=== PATIENT | male | born 1945 | race African-American/Black ===

== ENCOUNTER 2016-06-20 06:54 | Day surgery (SDC) | payer MEDICARE, BC ==
[~2016-06-20] VITALS: Ht 172.7 cm; Wt 110.7 kg
[~2016-06-20 06:54] MED LIST: ACTOS30 MG PO; ADLT ASA LOW81 MG PO; ALLOPURINOL100 MG OR; ALLOPURINOL300 MG PO; AMLODIPINE5 MG OR; APAP/HYDROCO1 TA1 OR; ATENOLOL25 MG PO; BENAZEPRIL20 MG OR; FLEXERIL OR; GLYBURID MCR6 MG OR; HUMULIN 70/30 SC; HUMULIN N1 ML SC; HYDROCHLOROT25 MG OR; MAXZIDE-2537.5 MG/TA PO; METFORMIN850 MG OR; NIFEDIPINE ER60 M1 PO; OMEPRAZOLE20 M2 PO; SIMVASTATIN40 MG OR; TRESIBA FL100 UNIT/M IJ
[2016-06-20 13:01] VITALS: BP 121/64
== END 2016-06-20 11:50 | disposition home or self-care (01) ==
LOC: ENDO 06:54 → ORM 08:00 → ENDO 11:50
PROVIDERS: ATTEND Surgery
PROC: 0DBP8ZX Excision of Rectum, Via Natural or Artificial Opening Endoscopic, Diagnostic (ICD-10-PCS; principal; 2016-06-20)
DX: Z12.11 Encounter for screening for malignant neoplasm of colon (principal); D12.8 Benign neoplasm of rectum; I12.9 Hypertensive chronic kidney disease with stage 1 through stage 4 chronic kidney disease, or unspecified chronic kidney disease; N18.3 Chronic kidney disease, stage 3 (moderate); E11.9 Type 2 diabetes mellitus without complications; I25.10 Atherosclerotic heart disease of native coronary artery without angina pectoris; K21.9 Gastro-esophageal reflux disease without esophagitis; E66.9 Obesity, unspecified; Z86.010 Personal history of colon polyps

== ENCOUNTER → 2018-05-09 | Outpatient (REF) | payer MEDICARE, BC | END | disposition home or self-care (01) | LOC: LAB 08:59 | PROVIDERS: ATTEND Radiology Radiation Oncology | DX: C61 Malignant neoplasm of prostate (principal) ==

== ENCOUNTER 2018-11-09 08:57 | Inpatient (IN) | payer MEDICARE, BC ==
[~2018-11-09] VITALS: Ht 172.7 cm; Wt 116.6 kg
[~2018-11-09 08:57] MED LIST changes: -SIMVASTATIN40 MG OR; +SIMVASTATIN40 MG PO; -TRESIBA FL100 UNIT/M IJ; +TRESIBA FL100 UNIT/M SC
[2018-11-09] MEDS ORDERED: AMMONIUM LAC12 % EX (09:39)
[2018-11-09] MEDS ORDERED: DULOXETINE HCL30 MG PO (09:40)
[2018-11-09] MEDS ORDERED: LEVOTHYROXIN75 MCG PO (09:41)
[2018-11-09] MEDS ORDERED: FUROSEMIDE20 MG PO (09:42)
[2018-11-09 09:43] LABS: HEMATOCRIT 30.9 % (39.0-50.0); HEMOGLOBIN 10.1 g/dl (14.0-18.0); IMMATURE GRANULOCYTES 0.4 % (0.0-5.0); MEAN CELL VOLUME 98.4 fL CALC (80.0-100.0); MEAN CORPUSCULAR HGB 32.2 pG CALC (26.0-32.0); MEAN CORPUSCULAR HGB CONC 32.7 g/L CALC (32.0-36.0); NEUT# 6.01 thou/uL (1.82-7.42); RED BLOOD COUNT 3.14 mill/uL (4.70-6.10); RED CELL DISTRI WIDTH 16.4 % (11.5-15.5)
[2018-11-09 09:58] LABS: CREATININE 2.6 mg/dL (0.7-1.3)
[2018-11-09 12:28] VITALS: BP 154/75
[2018-11-09 16:12] VITALS: BP 184/77
[2018-11-09 20:44] VITALS: BP 182/92
[2018-11-09 21:20] VITALS: BP 179/86
[2018-11-09 21:51] VITALS: BP 184/92
[2018-11-09 23:00] VITALS: BP 180/75
[2018-11-10 00:19] VITALS: BP 160/80
[2018-11-10 04:19] VITALS: BP 147/69
[2018-11-10 05:20] LABS: HEMOGLOBIN 8.9 g/dl (14.0-18.0); MEAN CELL VOLUME 98.5 fL CALC (80.0-100.0); MEAN CORPUSCULAR HGB 32.5 pG CALC (26.0-32.0); RED BLOOD COUNT 2.74 mill/uL (4.70-6.10); RED CELL DISTRI WIDTH 16.6 % (11.5-15.5)
[2018-11-10 05:41] LABS: CREATININE 2.5 mg/dL (0.7-1.3); POTASSIUM 4.1 mmol/l (3.5-5.1)
[2018-11-10 07:30] VITALS: BP 150/78
[2018-11-10 11:15] VITALS: BP 132/63
[2018-11-10 15:11] VITALS: BP 157/71
[2018-11-10 19:48] VITALS: BP 157/69
[2018-11-10 23:38] LABS: POTASSIUM 3.9 mmol/l (3.5-5.1)
[2018-11-11] VITALS (11 sets, daily range): BP systolic 150–177; BP diastolic 58–88
[2018-11-12] VITALS (20 sets, daily range): BP systolic 136–180; BP diastolic 62–92
[2018-11-12 05:25] LABS: HEMATOCRIT 25.8 % (39.0-50.0); HEMOGLOBIN 8.5 g/dl (14.0-18.0); IMMATURE GRANULOCYTES 0.3 % (0.0-5.0); MEAN CELL VOLUME 99.2 fL CALC (80.0-100.0); MEAN CORPUSCULAR HGB 32.7 pG CALC (26.0-32.0); MEAN CORPUSCULAR HGB CONC 32.9 g/L CALC (32.0-36.0); NEUT# 5.67 thou/uL (1.82-7.42); RED BLOOD COUNT 2.6 mill/uL (4.70-6.10)
[2018-11-12 05:33] LABS: ALBUMIN 3.6 g/dL (3.2-5.0); CREATININE 3.3 mg/dL (0.7-1.3); TOTAL PROTEIN 7.6 g/dL (6.3-8.2)
[2018-11-12 06:13] LABS: BILIRUBIN, TOTAL 0.6 mg/dL (0.0-1.4)
[2018-11-12 09:38] LABS: URINE BILIRUBIN - DIPSTICK NEGATIVE (NEGATIVE); URINE BLOOD DIPSTICK NEGATIVE (NEGATIVE); URINE COLOR YELLOW; URINE GLUCOSE - DIPSTICK NEGATIVE (NEGATIVE); URINE KETONE NEGATIVE (NEGATIVE); URINE LEUK ESTERASE NEGATIVE (Negative); URINE NITRITE - DIPSTICK NEGATIVE (Negative); URINE PH 5.5 (4.5-8.0); URINE PROTEIN - DIPSTICK 100 mg/dL (NEG-TRACE); URINE SPECIFIC GRAVITY >=1.030; URINE UROBILINOGEN - DIPSTICK 0.2 E.U./dL (0.2)
[2018-11-12 09:40] LABS: URINE CLARITY CLEAR; URINE RBC 0-2 RBC/hpf (0-5); URINE WBC 0-2 WBC/hpf (0-5)
[2018-11-13] VITALS (12 sets, daily range): BP systolic 158–206; BP diastolic 63–100
[2018-11-13 05:57] LABS: HEMATOCRIT 28.8 % (39.0-50.0); HEMOGLOBIN 9.3 g/dl (14.0-18.0); MEAN CELL VOLUME 99.3 fL CALC (80.0-100.0); MEAN CORPUSCULAR HGB 32.1 pG CALC (26.0-32.0); MEAN CORPUSCULAR HGB CONC 32.3 g/L CALC (32.0-36.0); RED BLOOD COUNT 2.9 mill/uL (4.70-6.10); RED CELL DISTRI WIDTH 16.8 % (11.5-15.5)
[2018-11-13 06:10] LABS: CREATININE 3.2 mg/dL (0.7-1.3); POTASSIUM 4.5 mmol/l (3.5-5.1)
[2018-11-14] VITALS (18 sets, daily range): BP systolic 135–220; BP diastolic 77–99
[2018-11-14 00:30] LABS: C. DIFFICILE TOXIN A&B NEGATIVE (NEGATIVE)
[2018-11-14 05:46] LABS: HEMATOCRIT 26.5 % (39.0-50.0); HEMOGLOBIN 8.7 g/dl (14.0-18.0); MEAN CELL VOLUME 98.1 fL CALC (80.0-100.0); MEAN CORPUSCULAR HGB 32.2 pG CALC (26.0-32.0); MEAN CORPUSCULAR HGB CONC 32.8 g/L CALC (32.0-36.0); RED BLOOD COUNT 2.7 mill/uL (4.70-6.10); RED CELL DISTRI WIDTH 16.5 % (11.5-15.5)
[2018-11-14 06:09] LABS: ALBUMIN 3.7 g/dL (3.2-5.0); CREATININE 2.9 mg/dL (0.7-1.3); POTASSIUM 4.7 mmol/l (3.5-5.1)
[2018-11-15] VITALS (18 sets, daily range): BP systolic 154–221; BP diastolic 62–94
[2018-11-15 05:42] LABS: HEMATOCRIT 26.1 % (39.0-50.0); HEMOGLOBIN 8.3 g/dl (14.0-18.0); MEAN CELL VOLUME 100.4 fL CALC (80.0-100.0); MEAN CORPUSCULAR HGB 31.9 pG CALC (26.0-32.0); MEAN CORPUSCULAR HGB CONC 31.8 g/L CALC (32.0-36.0); RED BLOOD COUNT 2.6 mill/uL (4.70-6.10); RED CELL DISTRI WIDTH 16.9 % (11.5-15.5)
[2018-11-15 06:00] LABS: ALBUMIN 3.5 g/dL (3.2-5.0); CREATININE 3.1 mg/dL (0.7-1.3); POTASSIUM 4.9 mmol/l (3.5-5.1)
[2018-11-16] VITALS (10 sets, daily range): BP systolic 143–175; BP diastolic 68–90
[2018-11-16 05:06] LABS: HEMATOCRIT 25.6 % (39.0-50.0); HEMOGLOBIN 8.4 g/dl (14.0-18.0); MEAN CELL VOLUME 98.1 fL CALC (80.0-100.0); MEAN CORPUSCULAR HGB 32.2 pG CALC (26.0-32.0); MEAN CORPUSCULAR HGB CONC 32.8 g/L CALC (32.0-36.0); RED BLOOD COUNT 2.61 mill/uL (4.70-6.10); RED CELL DISTRI WIDTH 16.6 % (11.5-15.5)
[2018-11-16 05:39] LABS: ALBUMIN 3.8 g/dL (3.2-5.0); CREATININE 3.1 mg/dL (0.7-1.3); POTASSIUM 4.4 mmol/l (3.5-5.1)
[2018-11-17] VITALS (7 sets, daily range): BP systolic 153–175; BP diastolic 80–90
[2018-11-17 04:22] LABS: HEMATOCRIT 25.3 % (39.0-50.0); HEMOGLOBIN 8.3 g/dl (14.0-18.0); MEAN CELL VOLUME 98.4 fL CALC (80.0-100.0); MEAN CORPUSCULAR HGB 32.3 pG CALC (26.0-32.0); MEAN CORPUSCULAR HGB CONC 32.8 g/L CALC (32.0-36.0); RED BLOOD COUNT 2.57 mill/uL (4.70-6.10); RED CELL DISTRI WIDTH 16.7 % (11.5-15.5)
[2018-11-17 04:33] LABS: ALBUMIN 3.7 g/dL (3.2-5.0); CREATININE 3.1 mg/dL (0.7-1.3); POTASSIUM 4.6 mmol/l (3.5-5.1)
[2018-11-18 04:28] VITALS: BP 141/73
[2018-11-18 07:22] VITALS: BP 166/81
[2018-11-18 10:07] VITALS: BP 176/99
[2018-11-18 11:22] VITALS: BP 158/60
[2018-11-18 11:39] LABS: HEMATOCRIT 27.3 % (39.0-50.0); HEMOGLOBIN 8.9 g/dl (14.0-18.0); IMMATURE GRANULOCYTES 2.1 % (0.0-5.0); MEAN CELL VOLUME 98.9 fL CALC (80.0-100.0); MEAN CORPUSCULAR HGB 32.2 pG CALC (26.0-32.0); MEAN CORPUSCULAR HGB CONC 32.6 g/L CALC (32.0-36.0); NEUT# 5.56 thou/uL (1.82-7.42); RED BLOOD COUNT 2.76 mill/uL (4.70-6.10); RED CELL DISTRI WIDTH 16.4 % (11.5-15.5)
[2018-11-18 11:57] LABS: CREATININE 2.5 mg/dL (0.7-1.3); POTASSIUM 4.5 mmol/l (3.5-5.1)
[2018-11-18 16:40] VITALS: BP 169/77
[2018-11-18] MEDS ORDERED: ALLOPURINOL100 MG PO (16:49)
[2018-11-18] MEDS ORDERED: DITROPAN5 MG/TA1 PO (16:50)
[2018-11-18] MEDS ORDERED: DOXYCYCL HYC100 MG PO (16:54)
== END 2018-11-18 18:50 | disposition home or self-care (01) | DRG 193 ==
LOC: ED 08:57 → ED-I 09:47 → ED 10:37 → MS2 10:38 → ICU 10:38 → MS2 11-16 13:45
PROVIDERS: Family Medicine; Internal Medicine Nephrology; Nurse Practitioner Family; ADMIT Internal Medicine; ATTEND Internal Medicine
PROC: 5A09357 Assistance with Respiratory Ventilation, Less than 24 Consecutive Hours, Continuous Positive Airway Pressure (ICD-10-PCS; principal; 2018-11-11)
PROC: 0T9B70Z Drainage of Bladder with Drainage Device, Via Natural or Artificial Opening (ICD-10-PCS; 2018-11-13)
DX: J18.9 Pneumonia, unspecified organism (principal); J96.21 Acute and chronic respiratory failure with hypoxia; N17.9 Acute kidney failure, unspecified; J44.1 Chronic obstructive pulmonary disease with (acute) exacerbation; J44.0 Chronic obstructive pulmonary disease with (acute) lower respiratory infection; I12.9 Hypertensive chronic kidney disease with stage 1 through stage 4 chronic kidney disease, or unspecified chronic kidney disease; E11.22 Type 2 diabetes mellitus with diabetic chronic kidney disease; N18.3 Chronic kidney disease, stage 3 (moderate); D63.1 Anemia in chronic kidney disease; E03.9 Hypothyroidism, unspecified; K21.9 Gastro-esophageal reflux disease without esophagitis; K59.00 Constipation, unspecified; F32.9 Major depressive disorder, single episode, unspecified; Z79.4 Long term (current) use of insulin; Z87.891 Personal history of nicotine dependence; Z85.46 Personal history of malignant neoplasm of prostate
CPT/HCPCS: J1756; S0164

== ENCOUNTER 2019-06-02 07:53 | Inpatient (IN) | payer MEDICARE, BC ==
[~2019-06-02] VITALS: Ht 172.7 cm; Wt 113.6 kg
[~2019-06-02 07:53] MED LIST changes: +ALLOPURINOL100 MG PO; +AMMONIUM LAC12 % EX; +CLONIDINE0.1 MG PO; +DITROPAN5 MG/TA1 PO; +DOXYCYCL HYC100 MG PO; +DULOXETINE HCL30 MG PO; +FUROSEMIDE20 MG PO; +LEVOTHYROXIN75 MCG PO; +NOVOLOG MIX SC; +RAYALDEE30 MCG PO; -SIMVASTATIN40 MG PO; -TRESIBA FL100 UNIT/M SC; +TRESIBA FL200 UNIT/M SC; +ZOCOR20 M1 PO; +ZYLOPRIM100 MG PO
--- NOTE | 2019-06-02 08:13 | NUR ---
PT TO ROOM WITH A STEADY GAIT.
[2019-06-02] MEDS ORDERED: LASIX20 MG PO (08:30)
[2019-06-02] MEDS ORDERED: RAYALDEE30 MCG PO (08:32)
[2019-06-02] MEDS ORDERED: TRAZODONE PO (08:38)
[2019-06-02] MEDS ORDERED: FERROUS SULF325 M2 PO (08:39)
[2019-06-02] MEDS ORDERED: VITAMIN B-12500 MCG PO (08:39)
[2019-06-02 08:53] LABS: HEMATOCRIT 33.8 % (39.0-50.0); HEMOGLOBIN 11.1 g/dl (14.0-18.0); IMMATURE GRANULOCYTES 0.6 % (0.0-5.0); MEAN CELL VOLUME 97.7 fL CALC (80.0-100.0); MEAN CORPUSCULAR HGB 32.1 pG CALC (26.0-32.0); MEAN CORPUSCULAR HGB CONC 32.8 g/L CALC (32.0-36.0); NEUT# 4.92 thou/uL (1.82-7.42); RED BLOOD COUNT 3.46 mill/uL (4.70-6.10); RED CELL DISTRI WIDTH 16.5 % (11.5-15.5)
[2019-06-02 09:06] LABS: ALBUMIN 4.3 g/dL (3.2-5.0); CREATININE 2.7 mg/dL (0.7-1.3); POTASSIUM 3.9 mmol/l (3.5-5.1); TOTAL PROTEIN 8.7 g/dL (6.3-8.2)
--- NOTE | 2019-06-02 09:07 | NUR ---
PT MEDICATED FOR FEVER. PT IN NO ACUTE DISTRESS, RESP EVEN AND [id number]. O2 AT 96% ON RA
[2019-06-02 09:08] LABS: BILIRUBIN, TOTAL 0.5 mg/dL (0.0-1.4)
[2019-06-02 09:10] LABS: ACT PARTIAL THROMBO TIME 33.1 SECONDS (20.0-32.5); PROTHROMBIN TIME 10.1 SECONDS (9.0-12.5)
--- NOTE | 2019-06-02 10:00 | NUR ---
RECIEVED REPORT FROM BULL VARELA
--- NOTE | 2019-06-02 11:00 | NUR ---
PT STATES HAVING SO8 WHEN HE ARRIVED, HE DENIES ANY SO8 AT THIS TIME OR CHEST PAIN. L LUNG SOUNDS CLEAR AND RIGHT LOWER LUNGS HAVE FAINT CRACKLES. SPO2 AT 95% WITH 2 L OF O2. PT DENIED DIZZINESS OR ANY OTHER PAIN OR SYMPTOMS. WILL CONTINUE TO [facility].
--- NOTE | 2019-06-02 12:00 | NUR ---
PT RESTING ON STRETCHER WITH CALL LIGHT AT REACH. PT AND NOTIFIED OF WAIT
--- NOTE | 2019-06-02 13:00 | NUR ---
PT AWARE OF PENDING ADMISSION AND ADVISED ON WAIT.
--- NOTE | 2019-06-02 14:00 | NUR ---
PT SITTING UP IN 8ED DENIES ANY NEEDS AT THIS TIME. ASKED FOR PO FLUIDS.
--- NOTE | 2019-06-02 15:15 | NUR ---
DR BATEMAN IN ROOM DISCUSSING PLAN OF CARE WITH PT.
--- NOTE | 2019-06-02 15:21 | NUR ---
GAVE REPORT TO CHRISTEN
--- NOTE | 2019-06-02 15:22 | NUR ---
PT TRANSPORTED TO MED SURG STA8LE AND IN NO DISTRESS VIA W/C 8Y MARIA R. CARE ASSUMED TO MARIA R WHO TRANSPORTED PT TO MED SURG Admission Note Report Given to: Transported by: X Wheelchair Stretcher Transported with: Nurse X Transporter X Patent IV X O2 X District Director Location: ICU X MS2
--- NOTE | 2019-06-02 15:40 | NUR ---
PT ARRIVED TO MS ACCOMPANIED BY JAMIE VARELA AND . A&O X3. O2 VIA NC @ 2L IN PLACE. PER PT HE WAS FEELING SOB EARLIER TODAY BUT IT HAS SUBSIDED. PER PT HE WOULD LIKE TO TAKE IT OFF AND KEEP IT AT BEDSIDE IF HE NEEDS IT, EXPLAINED TO THE PT THAT IF HIS O2 LEVEL DROPPED HE WAS GOING TO HAVE TO KEEP IT ON. PT VERBALIZED UNDERSTANDING. ORIENTED PT TO ROOM. ASSESSMENT COMPLETED. CALL LIGHT IN REACH. CONTINUE TO MONITOR.
[2019-06-02 16:00] VITALS: BP 149/82
--- NOTE | 2019-06-02 17:10 | NUR ---
PT SITTING IN BED EATING SUPPER WHEN HE HAD A COUGH EPISODE WHICH CAUSED SOB. O2 PLACED BACK ON AND EXPLAINED TO PT THAT HE WAS TO KEEP IT ON. PT VERBALIZED UNDESTANDING. CONTINUE TO MONITOR
[2019-06-02 18:34] VITALS: BP 158/84
--- NOTE | 2019-06-02 20:00 | NUR ---
PATIENT RESTING IN BED WITH HOB ELEVATED AND O2 VIA NASAL CANNULA IN PLACE. AWAKE, ALERT AND ORIENTEDX3. TELE MONITOR INPLACE. NO COMPLAINTS AT THIS TIME.IV SITE TO LEFT AC INTACT AND IS HEALTHY AT THIS TIME. INSTRUCTED ON NEED FOR SPUTUM SPEC WHEN ABLE TO PROVIDE.SAFETY PRECAUTIONS REINFORCED. CALL LIGHT IN REACH. WILL CONT TO MONITOR.
--- NOTE | 2019-06-02 21:00 | NUR ---
PATIENT RESTING IN BED WITH AT BEDSIDE. [id number] AND COVERED PER NOVALOG SLIDING SCALE COVERAGE PROTOCOL. NOVALOG 3UNITS SQ GIVEN. IOVF NS HUNG AND INFUSING VIA LEFT AC SITE. CALL LIGHT IN REACH. WILL CONT TO MONITOR.
--- NOTE | 2019-06-02 23:30 | NUR ---
PATIENT RESTING IN BED WITH O2 VIA NASAL CANNULA IN PLACE. APPEARS SLEEPING AT THIS TIME. TELE MONITOR IN PLACE. AT BEDSIDE. IVF PATENT AND INFUSING VIA LAC SITE AT 100CC/HR. CALL LIGHT IN REACH. WILL CONT TO MONITOR.
[2019-06-03] VITALS (7 sets, daily range): BP systolic 154–187; BP diastolic 74–87
--- NOTE | 2019-06-03 05:11 | NUR ---
RESTING IN BED AT THIS TIME WITH HOB ELEVATED AND EYES CLOSED. S/O RESTING AT BEDSIDE. O2 VIA NASAL CANNULA IN PLACE. IVF PATENT AND INFUSING VIA LAC SITE AT 100CC/HR. TELE MONITOR IN PLACE. CALL LIGHT IN REACH. WILL CONT TO MONITOR.
[2019-06-03 06:44] LABS: HEMATOCRIT 30.3 % (39.0-50.0); HEMOGLOBIN 9.7 g/dl (14.0-18.0); MEAN CELL VOLUME 98.1 fL CALC (80.0-100.0); MEAN CORPUSCULAR HGB 31.4 pG CALC (26.0-32.0); RED BLOOD COUNT 3.09 mill/uL (4.70-6.10); RED CELL DISTRI WIDTH 16.3 % (11.5-15.5)
[2019-06-03 06:56] LABS: CREATININE 2.7 mg/dL (0.7-1.3); POTASSIUM 4.4 mmol/l (3.5-5.1)
--- NOTE | 2019-06-03 07:14 | NUR ---
PT HAS RECEIVED BOTH PREVNAR AND PNEUMOVAX AFTER AGE 64, NEITHER INDICATED FOR PT AT THIS TIME
--- NOTE | 2019-06-03 09:00 | NUR ---
PT IS ALERT AND ORIENTED X 3. LUNGS ARE CLEAR, 2 LPM NC, THIS AFTER RESP TX. IS AT BEDSIDE. PT TO BR TODAY, BM TODAY. NO COMPLAINT OF SHORTNESS OF BREATH OR CHEST PAIN. PT WITH GHANAIAN ACCENT, DIFFICULT TO UNDERSTAND SOMETIMES.
--- NOTE | 2019-06-03 17:00 | NUR ---
PT OOB IN CHAIR THIS AFTERNOON. RESP TXs PROVIDED. PT DENIES SHORTNESS OF BREATH. PT SHOWERED TODAY.
--- NOTE | 2019-06-03 20:30 | NUR ---
PATIENT RESTING IN BED WITH AT BEDSIDE. AWAKE ALERT AND ORIENTEDX3. O2 VIA NASAL CANNULA INPLACE ORDERED. PATIENT SOB WITH EXHERSION WITH AUDIBLE WHEEZE, RT CALLED FOR NEB TREATMENT. TELE MONITOR IN PLACE. IVF PATENT AND INFUSING VIA LAC AT 50CC/HR. SITE IS HEALTHY AT THIS TIME. ACCU-CHECK 248-COVERED PER NOVALOG SLIDING SCALE COVERAGE PROTOCOL. HS SNACK PROVIDED. SAFETY PRECAUTIONS REINFORCED. CALL LIGHT IN REACH. WILL CONT TO JULIÁN.
--- NOTE | 2019-06-04 | NUR ---
PATIENT APPEARS SLEEPING WITH HOB ELEVATED AND O2 VIA NASAL CANNULA INPLACE AND EYES CLOSED. TELE MONITOR IN PLACE. IVF PATENT AND INFUSING VIA LEFT AC SITE AT 50CC/HR. AT BEDSIDE APPEARS SLEEPING. CALL LIGHT IN REACH. WILL CONT TO MONITOR.
[2019-06-04 03:25] VITALS: BP 159/87
--- NOTE | 2019-06-04 04:00 | NUR ---
PATIENT RESTING IN BED AT THIS TIME WITH O2 VIA NASAL CANNULA IN PLACE. EYES CLOSED AND RESP ARE EVEN AND UNLABORED. TELE MONITOR IN PLACE. AT BEDSIDE. IVF PATENT AND INFUSING ORDERED. CALL LIGHT IN REACH. WILL CONT TO MONITOR.
[2019-06-04 05:23] LABS: HEMATOCRIT 29.9 % (39.0-50.0); HEMOGLOBIN 9.6 g/dl (14.0-18.0); MEAN CELL VOLUME 98.7 fL CALC (80.0-100.0); MEAN CORPUSCULAR HGB 31.7 pG CALC (26.0-32.0); MEAN CORPUSCULAR HGB CONC 32.1 g/L CALC (32.0-36.0); RED BLOOD COUNT 3.03 mill/uL (4.70-6.10); RED CELL DISTRI WIDTH 16.5 % (11.5-15.5)
[2019-06-04 05:45] LABS: CREATININE 3.2 mg/dL (0.7-1.3)
[2019-06-04 06:02] LABS: POTASSIUM 5.3 mmol/l (3.5-5.1)
--- NOTE | 2019-06-04 07:00 | NUR ---
SHIFT CHANGE REPORT, PT AWAKE ALERT AND ORIENTED RESTING IN BED, O2 @ 2L VIA NC IN PLACE, TELE MONITOR IN PLACE, NO C/O DISCOMFORT AT THIS TIME, CALL BEE IN REACH, SPOUSE AT BEDSIDE.
[2019-06-04 07:30] VITALS: BP 152/85
[2019-06-04 10:52] VITALS: BP 159/85
[2019-06-04 11:05] LABS: URINE BILIRUBIN - DIPSTICK NEGATIVE (NEGATIVE); URINE BLOOD DIPSTICK MODERATE (NEGATIVE); URINE COLOR YELLOW; URINE GLUCOSE - DIPSTICK >=1000 mg/dL (NEGATIVE); URINE KETONE NEGATIVE (NEGATIVE); URINE LEUK ESTERASE NEGATIVE (NEGATIVE); URINE NITRITE - DIPSTICK NEGATIVE (Negative); URINE PH 5.5 (4.5-8.0); URINE PROTEIN - DIPSTICK 100 mg/dL (NEG-TRACE); URINE SPECIFIC GRAVITY 1.025; URINE UROBILINOGEN - DIPSTICK 0.2 E.U./dL (0.2)
[2019-06-04 11:06] LABS: URINE WBC 0-2 WBC/hpf (0-5)
[2019-06-04 15:20] VITALS: BP 160/77
--- NOTE | 2019-06-04 15:41 | NUR ---
RESTING IN BED AT THIS TIME, NO NEW COMPLAINS AND NO VISIBLE SIGN DISCOMFORT.
[2019-06-04 17:57] VITALS: BP 152/72
[2019-06-04 19:50] VITALS: BP 146/72
--- NOTE | 2019-06-04 21:00 | NUR ---
PATIENT RESTING IN BED WITH O2 VIA NASAL CANNULA INPLACE. AT BEDSIDE. [id number]. TYREE IS ON SOLU-MEDROL. PATRICIA GARZON CALLED AND NEW ORDERS RECEIVED, GIVEN 12UNITS OF NOVALOG TONIGHT, INCREASE LEVEMIR TO 40UNITS SQ IN AM, AND CHANGE NOVALOG SLIDING SCALE TO HIGH DOSE STARTING IN AM. WILL MEDICATED WHEN MEDS PROFILED ON EMAR. WILL CONT TO [id number]
[2019-06-05] VITALS (7 sets, daily range): BP systolic 150–170; BP diastolic 70–80
--- NOTE | 2019-06-05 00:15 | NUR ---
PATIENT RESTING IN BED WITH AT BEDSIDE. PATIENT WITH O2 VIA NASAL CANNULA IN PLACE. VS TAKEN AND RECORDED. VOIDING QS 350CC OF YELLOW URINEIN URINAL. TELE MONITOR IN PLACE. SAFETY PRECAUTIONS REINFORCED. CALL LIGHT IN REACH. WILL CONT TO MONITOR.
--- NOTE | 2019-06-05 04:00 | NUR ---
PATIENT RESTING IN BED AT THIS TIME WITH AT BEDSIDE. VS TAKEN AND RECORDED. VOIDED QS IN URINAL. TELE MONITOR IN PLACE. STILL WITH O2 VIA NASAL CANNULA IN PLACE. CALL LIGHT IN REACH. WILL CONT TO MONITOR.
[2019-06-05 04:43] LABS: HEMATOCRIT 29.6 % (39.0-50.0); HEMOGLOBIN 9.6 g/dl (14.0-18.0); MEAN CELL VOLUME 98.7 fL CALC (80.0-100.0); MEAN CORPUSCULAR HGB CONC 32.4 g/dL CAL (32.0-36.0); RED CELL DISTRI WIDTH 16.4 % (11.5-15.5)
[2019-06-05 04:58] LABS: ALBUMIN 3.5 g/dL (3.2-5.0); CREATININE 2.8 mg/dL (0.7-1.3); MAGNESIUM 2.2 mg/dL (1.6-2.3); POTASSIUM 4.8 mmol/l (3.5-5.1)
--- NOTE | 2019-06-05 12:00 | NUR ---
ASSISTED WITH SET-UP FOR SHOWER, ALL NEEDS MET.
--- NOTE | 2019-06-05 16:00 | NUR ---
RESTING IN BED, NO NEW COMPLAIN, SPOUSE AT BEDSIDE.
--- NOTE | 2019-06-05 20:35 | NUR ---
PT ASSESSMENT COMPLETED AND PT MEDICATIONS ADMINISTERED AT THIS TIME ORDERS PROVIDE. IS AT BEDSIDE COUGHING, STATED SHE HAS BEEN FEELING SICK, BUT HAD BEEN TO THE PHYSICIAN AND IS ON ANTIBIOTIC THERAPY. PT LUNG SOUNDS ARE CLEAR W/MILD WHEEZING UPPER. NO S/O DISTRESS. PT IS SITTING ON SIDE OF THE BED WATCHING TV WITH LIGHTS OUT. PT PROVIDED DIET SODA AT THIS TIME, DENIES SNACK.
[2019-06-06 01:34] VITALS: BP 169/80
--- NOTE | 2019-06-06 01:40 | NUR ---
PT MEDICATED FOR SUSTAINED SBP >160. ASSISTED WORKING RECLINER AND PROVIDED PILLOWS AND BLANKETS FOR COMFORT. PT DENIED ANY NEEDS AT THIS TIME. WILL CONTINUE TO MONITOR.
[2019-06-06 03:28] VITALS: BP 152/75
[2019-06-06 05:37] LABS: CREATININE 2.6 mg/dL (0.7-1.3); MAGNESIUM 2.2 mg/dL (1.6-2.3); POTASSIUM 4.3 mmol/l (3.5-5.1)
--- NOTE | 2019-06-06 06:33 | NUR ---
PT MEDICATED ORDERS PROVIDE. PT WAS SLEEPING WHEN I ENTERED THE ROOM.
[2019-06-06 07:38] VITALS: BP 148/71
--- NOTE | 2019-06-06 07:38 | NUR ---
PT SITTING IN BED. A&O X3. O2 VIA NC @2L IN PLACE. NO DISTRESS NOTED. WHEEZING HEARD UPON AUSCULTATION. NO OTHER NEEDS AT THIS TIME. PT VOICES THAT HE WOULD LIKE TO GO HOME TODAY, EXPLAINED TO PT THAT PHYSICIAN WOULD BE IN SOON TO COMPLETE ROUNDS. ASSESSMENT COMPLETED. DISCUSSED DOC. CALL LIGHT IN REACH. CONTINUE TO MONITOR.
[2019-06-06 10:40] VITALS: BP 177/88
[2019-06-06 10:42] VITALS: BP 177/88
--- NOTE | 2019-06-06 10:42 | NUR ---
CLONIDINE GIVEN, BP 177/88 HR 73. WILL REASSESS
[2019-06-06] MEDS ORDERED: LASIX20 MG PO (10:53)
[2019-06-06] MEDS ORDERED: DOXYCYCL HYC100 MG PO (10:54)
[2019-06-06] MEDS ORDERED: MEDDOSEPAK PO (10:54)
--- NOTE | 2019-06-06 11:56 | NUR ---
D/C INSTRUCTIONS GIVEN TO PT AND SPOUSE. PT VERBALIZED UNDERSTANDING. IV REMOVED. INTACT UPON REMOVAL.
--- NOTE | 2019-06-06 12:02 | NUR ---
Discharge instructions given. Patient verbalizes understanding of same. Discharged in stable condition via ambulatory to home with spouse. All belongings sent with pt.
== END 2019-06-06 12:02 | disposition home or self-care (01) | DRG 194 ==
LOC: ED 07:53 → ED-I 10:17 → ED 10:27 → MS2 10:28 → ED-I 10:28 → MS2 14:25
PROVIDERS: Internal Medicine Nephrology; Nurse Practitioner Family; ADMIT Internal Medicine; ATTEND Internal Medicine
DX: J18.9 Pneumonia, unspecified organism (principal); J96.11 Chronic respiratory failure with hypoxia; I13.0 Hypertensive heart and chronic kidney disease with heart failure and stage 1 through stage 4 chronic kidney disease, or unspecified chronic kidney disease; I50.9 Heart failure, unspecified; E11.22 Type 2 diabetes mellitus with diabetic chronic kidney disease; N18.3 Chronic kidney disease, stage 3 (moderate); D63.1 Anemia in chronic kidney disease; E03.9 Hypothyroidism, unspecified; E87.5 Hyperkalemia; M10.9 Gout, unspecified; Z87.01 Personal history of pneumonia (recurrent); Z87.891 Personal history of nicotine dependence; Z99.81 Dependence on supplemental oxygen; Z79.4 Long term (current) use of insulin
CPT/HCPCS: G0378

== ENCOUNTER 2021-01-12 08:43 | Observation (INO) | payer MEDICARE, BC ==
[~2021-01-12] VITALS: Ht 172.7 cm; Wt 101.0 kg
[2021-01-12] VITALS (7 sets, daily range): BP systolic 144–195; BP diastolic 64–90
[~2021-01-12 08:43] MED LIST changes: +FERROUS SULF325 M2 PO; +LASIX20 MG PO; +MEDDOSEPAK PO; +TRAZODONE PO; +VITAMIN B-12500 MCG PO
--- NOTE | 2021-01-12 08:45 | NUR ---
PT IMMEDIATELY TO ROOM # 13 VIA W/C FOR BEDSIDE TRIAGE
--- NOTE | 2021-01-12 08:49 | NUR ---
PATIENT WITH 2+ EDEMA TO LOWER LEGS
[2021-01-12 09:25] LABS: HEMATOCRIT 30.4 % (39.0-50.0); HEMOGLOBIN 9.7 g/dl (14.0-18.0); IMMATURE GRANULOCYTES 0.1 % (0.0-5.0); MEAN CELL VOLUME 104.1 fL CALC (80.0-100.0); MEAN CORPUSCULAR HGB 33.2 pG CALC (26.0-32.0); MEAN CORPUSCULAR HGB CONC 31.9 g/dL CAL (32.0-36.0); NEUT# 5.67 thou/uL (1.82-7.42); RED BLOOD COUNT 2.92 mill/uL (4.70-6.10); RED CELL DISTRI WIDTH 16.9 % (11.5-15.5)
[2021-01-12 09:48] LABS: ALBUMIN 4.1 g/dL (3.2-5.0); BILIRUBIN, TOTAL 0.5 mg/dL (0.0-1.4); CREATININE 3.8 mg/dL (0.7-1.3); POTASSIUM 4.1 mmol/l (3.5-5.1); TOTAL PROTEIN 8.3 g/dL (6.3-8.2)
--- NOTE | 2021-01-12 10:16 | NUR ---
PATIENT REEDUCATED TO NEED FOR COLLECTION OF URINE
[2021-01-12 10:28] LABS: URINE BILIRUBIN - DIPSTICK NEGATIVE (NEGATIVE); URINE BLOOD DIPSTICK MODERATE (NEGATIVE); URINE COLOR YELLOW; URINE GLUCOSE - DIPSTICK NEGATIVE (NEGATIVE); URINE KETONE NEGATIVE (NEGATIVE); URINE LEUK ESTERASE NEGATIVE (NEGATIVE); URINE PH 6.5 (4.5-8.0); URINE PROTEIN - DIPSTICK >=300 mg/dL (NEG-TRACE); URINE UROBILINOGEN - DIPSTICK 0.2 E.U./dL (0.2)
[2021-01-12 10:29] LABS: URINE NITRITE - DIPSTICK NEGATIVE (Negative)
[2021-01-12 10:36] LABS: URINE WBC 0-2 WBC/hpf (0-5)
--- NOTE | 2021-01-12 11:37 | NUR ---
PER PHYSICIAN GIVE LASIX AT THIS TIME.
--- NOTE | 2021-01-12 12:32 | NUR ---
REMAINS BEDSIDE WITH PATIENT
--- NOTE | 2021-01-12 14:22 | NUR ---
REPORT RECEIVED FROM AVERY PENA
--- NOTE | 2021-01-12 14:29 | NUR ---
REPORT GIVEN TO MED/SURG NURSE
[2021-01-12] MEDS ORDERED: LASIX 40 MG TAB40 MG PO (14:31)
--- NOTE | 2021-01-12 14:45 | NUR ---
PT ARRIVED TO MED/SURG ROOM 262 IN STABLE CONDITION VIA WC ACCOMPANIED DOREEN,AVERY AND SPOUSE;PT ASSISTED TO BEDSIDE WITH X1 PERSON ASSIST;VS AND WT OBTAINED BY OUMOU GHOTRA;PT BLOOD PRESURE ELEVATED AT 195/90 HR 70, ALL SCHEDULED MEDICATIONS TO BE GIVEN; PT A&O X3, ORIENTED TO ROOM AND CALL LIGHT SYSTEM;PT REPORTS SOB X1 WEEK PRIOR TO ARRIVAL;PT DENIES ANY CURRENT PAIN OR DISCOMFORTS,PAIN SCALE AND REPORTING EDUCATED;RESPIRATIONS EVEN AND UNLABORED ON O2 @ 3L VIA NC, PT HOME OXYGEN DEPENDENT ON 3L;DIMINISHED LUNG SOUNDS WITH NON-PRODUCTIVE COUGH;ABDOMEN DISTENDED/SOFT ON PALPATION AND ACTIVE IN ALL 4 QUADRANTS,LAST BM 01/11/21;WEAK PEDAL PULSES WITH +2 EDEMA TO BLE,ENCOURAGED ELEVATION OF BLE;SKIN INTACT;#20G TO RAC FLUSHED AND PATENT,SITE APPEARS HEALTHY;FALL AND ALLERGY BAND APPLIED TO LEFT ARM;PT DENIES ANY ADDITIONAL NEEDS AND IS ENCOURAGED TO CALL FOR ASSISTANCE IF NEEDED;FALL PRECAUTIONS IN PLACE WITH BED IN THE LOWEST POSITION AND CALL LIGHT IN REACH;WILL CONTINUE TO MONITOR
--- NOTE | 2021-01-12 16:25 | NUR ---
#16F COPELAND INSERTED AT THIS TIME,PT TOLERATED WELL.STAT LOCK APPLIED TO RIGHT THIGH.
--- NOTE | 2021-01-12 17:50 | NUR ---
PT RESTING IN SEMI FOWLERS POSITION;RESPIRATIONS EVEN AND UNLABORED ON RA;PT DENIES ANY CURRENT PAIN OR NEEDS;TELE MONITORING IN PLACE;IV SITE PATENT;COPELAND CATHETER PATENT DRAINING TO GRAVITY WITH EASE;ENCOURAGED TO CALL FOR ASSISTANCE IF NEEDED;CALL LIGHT IN REACH;WILL CONTINUE TO MONITOR
--- NOTE | 2021-01-12 19:54 | NUR ---
PATIENT RESTING IN BED AT THIS TIME-AWAKE ALERT AND ORIENTEDX3-NO COMPLAINTS AT THIS TIME. O2 VIA NASAL CANNULA IN PLACE AT 3LPM-O2 SAT WAS 91 AT THIS TIME. BP RECHECKED AND WAS 141/64. TELE MONITOR IN PLACE WITH LAST READING SR-70'S. COPELAND CATH PATENT AND DRAINING YELLOW URINE. IV SITE IS PATENT AND HEALTHY AT THIS TIME. BLE WITH SWELLING AND ENCOURAGED TO KEEP THEM ELEVATED. SAFETY PRECAUTIONS REINFORCED. CALL LIGHT IN REACH. WILL CONT TO MONITOR.
--- NOTE | 2021-01-12 20:45 | NUR ---
ACCU-CHECK WAS 175-PATIENT COVERED WITH HUMALOG 1UNIT SQ PER SLIDING SCALE COVERAGE PROTOCOL. PROVIDED WITH HS SNACK. O2 REMAINS IN PLACE AT 3LPM. COPELAND PATENT AND DRAINING CLEAR YELLOW URINE. SALINE LOCK TO RAC INTACT. BLE WITH SWELLING-ELEVATED ON PILLOWS. SAFETY PRECAUTIONS REINFORCED. CALL LIGHT IN REACH. WILL CONT TO MONITOR.
[2021-01-13] VITALS (10 sets, daily range): BP systolic 150–193; BP diastolic 71–97
--- NOTE | 2021-01-13 00:40 | NUR ---
PATIENT RESTING IN BED AT THIS TIME WITH O2 VIA NASAL CANNULA IN PLACE AT 3LPM. O2 SAT IS 93%. BP IS ELEVATED AT 191/91. APRESOLINE 10MG IVP GIVEN VIA RAC SITE ORDERED FOR HTN. TELE MONITOR IN PLACE-LAST READING WAS SR-70 1DEGREEE AVB. COPELAND PATENT AND DRAINING YELLOW URINE. CALL LIGHT IN REACH. WILL CONT TO MONITOR.
--- NOTE | 2021-01-13 03:05 | NUR ---
PATIENT RESTING IN BED AT THIS TIME POSITIONED ON RIGHT SIDE WITH EYES CLOSED. RESPS ARE EVEN AND UNLABORED WITH O2 VIA NASAL CANNULA IN PLACE AT 3LPM. TELE MONITOR IN PLACE. COPELAND PATENT AND DRAINING YELLOW URINE. CALL LIGHT IN REACH. WILL CONT TO MONITOR.
--- NOTE | 2021-01-13 04:32 | NUR ---
PATIENT RESTING IN BED AT THIS TIME WITH O2 VIA NASAL CANNULA IN PLACE AT 3LPM. O2 SAT IS 94%. COPELAND PATENT AND DRAINING YELLOW URINE. TELE MONITOR IN PLACE WITH LAST READING SR-77 WITH 1ST DEGREE AVB. CALL LIGHT IN REACH. WILL CONT TO MONITOR.
[2021-01-13 05:08] LABS: HEMATOCRIT 30.9 % (39.0-50.0); HEMOGLOBIN 9.5 g/dl (14.0-18.0); MEAN CELL VOLUME 105.8 fL CALC (80.0-100.0); MEAN CORPUSCULAR HGB 32.5 pG CALC (26.0-32.0); MEAN CORPUSCULAR HGB CONC 30.7 g/dL CAL (32.0-36.0); RED BLOOD COUNT 2.92 mill/uL (4.70-6.10); RED CELL DISTRI WIDTH 17.2 % (11.5-15.5)
[2021-01-13 05:26] LABS: ALBUMIN 3.4 g/dL (3.2-5.0); CREATININE 3.3 mg/dL (0.7-1.3); MAGNESIUM 2.1 mg/dL (1.6-2.3); POTASSIUM 4.2 mmol/l (3.5-5.1)
--- NOTE | 2021-01-13 06:08 | NUR ---
PATIENT RESTING IN BED WITH O2 VIA NASAL CANNULA IN PLACE AT 3LPM. BP IS STILL ELEVATED-181/84, PULSE-75. PATIENT MEDICATED WITH APRESOLINE 10MG IVP AND LASIX 40MG IVP ORDERED FOR HTN. COPELAND PATENT AND DRAINING YELLOW URINE. TELE MONITOR IN PLACE3. PATIENT WITH NO COMPLAINTS OR CONCERNS AT THIS TIME. CALL LIGHT IN REACH. WILL CONT TO MONITOR.
--- NOTE | 2021-01-13 07:00 | NUR ---
RECIEVED REPORT FROM AVERY CLAY
--- NOTE | 2021-01-13 07:46 | NUR ---
PT RESTING IN SEMI FOWLERS POSITION. PT IS A/O X3. ASSESSMENT AND VITALS COMPLETED. BP 177/75, HR 77,O2 93% ON 3L NC, PT HOME O2 DEPENDENT. RESPIRATIONS ARE EVEN AND UNLABORED WITH EXCERTIONAL SOB NOTED. LUNG SOUNDS ARE DIMINISHED. HEART RHYTHM NORMAL WITH TELE IN PLACE. BOWEL SOUNDS ARE ACTIVE. #20G RAC FLUSHED, SITE APPEARS HEALTHY AND PATENT. COPELAND IN PLACE,1150 ML OF CLEAR YELLOW URINE EMPTIED. SKIN INTACT. 2+ EDEMA NOTED TO BLE. PT DENIES OF ANY PAINS OR DISCOMFORTS AT THIS TIME. ALL SAFETY PRECAUTIONS ARE IN PLACE WITH CALL LIGHT IN REACH. WILL CONTINUE TO MONITOR .
--- NOTE | 2021-01-13 10:00 | NUR ---
DR BOBO AND KEITH,ANPAGE AT BEDSIDE
--- NOTE | 2021-01-13 11:20 | NUR ---
PHYSICAL THERAPY AT BEDSIDE
--- NOTE | 2021-01-13 11:28 | NUR ---
DR ENNIS AT BEDSIDE
--- NOTE | 2021-01-13 11:29 | NUR ---
PT SITTING UP IN RECYLINER WATCHING TV. RESPIRATIONS ARE EVEN AND UNLABORED WITH NO DISTRESS NOTED. #20G RAC REMAINS IN PLACE. COPELAND CATH IN PLACE, 500 CLEAR URINE NOTED. TELE MONITORING IN PLACE. PT DENIES OF ANY PAINS OR DISCOMFORTS AT THIS TIME. ALL SAFETY PRECAUTIONS ARE IN PLACE WITH CALL LIGHT IN REACH. WILL CONTINUE TO MONITOR
--- NOTE | 2021-01-13 11:57 | NUR ---
REPORTED BP OF 170/79, HR 83. CARLYN PARKERRP INFORMED OF ELEVATED BP. NEW ORDERS TO BE OBTAINED.
--- NOTE | 2021-01-13 14:18 | NUR ---
Patient underwent screening today for PT department. Patient states that he ambulates with no use of assistive device, has 3 steps going in to the house from the veranda with hand rails on both sides. Patient uses 3 liters of oxygen utilize at night before going to bed. B LE AROM are WFL and muscle strength at 3+/5. Patient carries out bed mobility and transfer ADLs independently and carries out prolonged standing activity with fair + dynamic balance. Patient presently not a good candidate for PT intervention.
--- NOTE | 2021-01-13 14:53 | NUR ---
SCHEDULED MEDICATIONS ADMINISTERD. PT REQUESTING FOR MOM AND PRUNE JUICE.
--- NOTE | 2021-01-13 15:24 | NUR ---
JOSHUA OAKLEY CALLED FOR UPDATE. PASSCODE PROVIDED.
--- NOTE | 2021-01-13 15:57 | NUR ---
PT RESTING IN SEMI FOWLERS POSITION. REPSIRATIONS ARE EVEN AND UNLABORED ON 3L NC.TELE MONITORING IN PLACE. #20G RAC REMAINS IN PLACE. FLEY CATH IN PLACE, 900 OF CLEAR YELLOW URINE NOTED, FLOWING WITH GRAVITY. PT DENIES OF ANY PAINS OR DISCOMFORTS AT THIS TIME. ALL SAFETY PRECAUTIONS ARE IN PLACE WITH CALL LIGHT IN REACH. WILL CONTINUE TO MONITOR
--- NOTE | 2021-01-13 16:08 | NUR ---
REPORTED BP OF 193/97, HR 87. APRESOLINE ADMINISTERED BY AVERY IBARRA.
--- NOTE | 2021-01-13 19:35 | NUR ---
PT IN BED, DENIES ANY NEEDS AT THIS TIME. LIGHTS AND TV ARE ON.
--- NOTE | 2021-01-13 20:54 | NUR ---
PT ASSESSMENT COMPLETED AND PT MEDICATED ORDERS PROVIDE. TEMP 100.4 AND PT MEDICATED WITH TYLENOL. PT ANSWERS APPROPRIATELY. PT DENIES ANY NEEDS AT THIS TIME, SNACK OFFERED, DENIED AND STATES HE DOES NOT HAVE MUCH APPETITE, INSULIN HELD AT THIS TIME, ACCU-CHECK 160. PT DENIES ANY OTHER NEEDS, BUT WAS ENCOURAGED TO CALL NEEDS ARISE, VERBALIZED UNDERSTANDING WHEN REORIENTED TO CALL LIGHT.
--- NOTE | 2021-01-13 23:25 | NUR ---
PULPING MACHINE OPERATOR IN WITH THE PT OBTAINING V/S. DENIES ANY NEEDS AT THIS TIME. NO S/O DISTRESS NOTED.
[2021-01-14] VITALS (8 sets, daily range): BP systolic 153–214; BP diastolic 74–88
--- NOTE | 2021-01-14 02:10 | NUR ---
PT APPEARS TO BE SLEEPING, NO S/O DISTRESS NOTED. CALL LIGHT AT SIDE. RESP ARE EVEN AND NON-LABORED.
[2021-01-14 06:01] LABS: CREATININE 3.3 mg/dL (0.7-1.3); MAGNESIUM 2.2 mg/dL (1.6-2.3); POTASSIUM 3.8 mmol/l (3.5-5.1)
[2021-01-14 06:05] LABS: ALBUMIN 3.9 g/dL (3.2-5.0); CREATININE 3.3 mg/dL (0.7-1.3)
[2021-01-14 06:07] LABS: HEMATOCRIT 34.4 % (39.0-50.0); MEAN CELL VOLUME 101.8 fL CALC (80.0-100.0); MEAN CORPUSCULAR HGB 32.5 pG CALC (26.0-32.0); RED BLOOD COUNT 3.38 mill/uL (4.70-6.10); RED CELL DISTRI WIDTH 16.9 % (11.5-15.5)
--- NOTE | 2021-01-14 07:00 | NUR ---
RECIEVED REPORT FROM AVERY PLEITEZ
--- NOTE | 2021-01-14 07:49 | NUR ---
PT SITTING UP IN CHAIR. PT IS A/O X3. ASSESSMENT AND VITALS COMPLETED. BP 167/79, HR 89, O2 94% ON 3L NC THAT PT IS DEPENDENT ON AT HOME. RESPIRATIONS ARE EVEN AND UNLABORED WITH NO DISTRESS NOTED. LUNG SOUNDS ARE CLEAR. HEART RHYTHM NORMAL WITH TELE IN PLACE, SR WITH 1 AVB AND PVCS. PULSES STRONG. 1+ EDEMA NOTED TO BLE. SKIN INTACT. #20G RFA FLUSHED, SITE APPEARS HEALTHY AND PATENT. COPELAND CATH IN PLACE, CLEAR YELLOW URINE NOTED. PT REPORTS COPELAND LEAKING, NO DRAINAGE NOTED. PT DENIES OF ANY PAINS OR DISCOMFORTS AT THIS TIME. ALL SAFETY PRECAUTIONS ARE IN PLACE WITH CALL LIGHT IN REACH. WILL CONTINUE TO MONITOR
--- NOTE | 2021-01-14 10:16 | NUR ---
DR BOBO AT BEDSIDE
--- NOTE | 2021-01-14 11:40 | NUR ---
DR ENNIS AT BEDSIDE
[2021-01-14 11:45] LABS: URINE BILIRUBIN - DIPSTICK NEGATIVE (NEGATIVE); URINE BLOOD DIPSTICK MODERATE (NEGATIVE); URINE COLOR YELLOW; URINE GLUCOSE - DIPSTICK 250 mg/dL (NEGATIVE); URINE KETONE NEGATIVE (NEGATIVE); URINE LEUK ESTERASE TRACE (NEGATIVE); URINE NITRITE - DIPSTICK NEGATIVE (Negative); URINE PH 7.5 (4.5-8.0); URINE PROTEIN - DIPSTICK 100 mg/dL (NEG-TRACE); URINE UROBILINOGEN - DIPSTICK 0.2 E.U./dL (0.2)
--- NOTE | 2021-01-14 11:46 | NUR ---
RADIOLOGY AT BEDSIDE
[2021-01-14 11:54] LABS: URINE SQUAMOUS EPITHELIAL CELL FEW EPI/hpf (0-FEW)
--- NOTE | 2021-01-14 12:32 | NUR ---
LAB AT BEDSIDE
--- NOTE | 2021-01-14 12:37 | NUR ---
REPPORT BP BEING IN 190'S. UPON REASSESSMENT BP IS 214/84, HR 80. AVERY GOEL AND AVERY DSOUZA TO ADMINISTER APRESOLINE.
--- NOTE | 2021-01-14 12:44 | NUR ---
10 MG IV APRESOLINE GIVEN SLOWLY IVP FOR BP OF 214/84, HR: 80. BP TO BE REASSESSED.
[2021-01-14] MEDS ORDERED: OMEPRAZOLE DR40 MG PO (13:38)
[2021-01-14] MEDS ORDERED: NEURONTIN300 MG PO (13:39)
[2021-01-14] MEDS ORDERED: REPAGLINIDE2 MG PO (13:43)
[2021-01-14] MEDS ORDERED: DITROPAN5 MG/TA1 PO (13:48)
--- NOTE | 2021-01-14 14:00 | NUR ---
REASESSMENT OF BP RESULTING IN 167/77, HR 78. REPSIRATIONS REMAINS EVEN AND UNLABORED. PT CONTINUES TO DENY PAIN. PT REQUEST OF SOMETHING TO ASSIST WITH BM. KEITH,ANRP INFORMED.
--- NOTE | 2021-01-14 16:05 | NUR ---
KELLY GOODMAN CALLED. PT REMOVED TO 80'S XAVIER WITH NO WINDOW. KELLY BALDWIN CLEAR. PT ASSISTED BACK INTO ROOM 262. RESPIRATIONS ARE EVEN AND UNLABORED WITH NO DISTRESS NOTED ON 3L NC.TELE MONITORING IN PLACE. PT DENIES OF ANY NEEDS AT THIS TIME. ALL SAFETY PRECAUTIONS ARE IN PLACE WITH CALL LIGHT IN REACH. WILL CONTINUE TO MONITOR.
--- NOTE | 2021-01-14 16:50 | NUR ---
PT MEDICATED WITH MIRLAX AND SENNA. PT TOLERATED WELL. RESPIRATIONS REMAIN EVEN AND UNLABORED. ACCUCHECK REUSLTING IN 214. BP 166/81, HR 78. PT COMPLAINS OF 5/10 HEAD ACHE. TYLENOL TO BE AMDINITERED. ALL SAFETY PRECAUTIONS ARE IN PLACE. WILL CONTINUE TO MONITOR.
--- NOTE | 2021-01-14 17:44 | NUR ---
SUPPOSITORY ADMINSTERED PER PT REQUEST. PT TOLERATED WELL.
--- NOTE | 2021-01-14 19:25 | NUR ---
PATIENT ALERT AND ORIENTED. ABLE TO MAKE NEEDS KNOWN. DENIES ANY PAIN OR DISTRESS. CALL LIGHT AND BELONGINGS REMAIN IN REACH.
[2021-01-15] VITALS: BP 162/79
--- NOTE | 2021-01-15 00:10 | NUR ---
PATIENT RESTING IN BED QUIETLY. NO COMPLAINTS VOICED AT THIS TIME. CALL LIGHT AND BELONGINGS REMAIN IN REACH.
[2021-01-15 04:00] VITALS: BP 166/78
--- NOTE | 2021-01-15 04:10 | NUR ---
PATIENT RESTING IN BED QUIETLY. NO COMPLAINTS VOICED AT THIS TIME. CALL LIGHT AND BELONGINGS REMAIN IN REACH.
[2021-01-15 05:15] LABS: HEMATOCRIT 32.5 % (39.0-50.0); HEMOGLOBIN 10.4 g/dl (14.0-18.0); RED BLOOD COUNT 3.25 mill/uL (4.70-6.10); RED CELL DISTRI WIDTH 17.1 % (11.5-15.5)
[2021-01-15 05:22] LABS: CREATININE 3.1 mg/dL (0.7-1.3); MAGNESIUM 2.1 mg/dL (1.6-2.3)
--- NOTE | 2021-01-15 07:00 | NUR ---
RECIEVED REPORT FROM AVERY HARRIS
[2021-01-15 08:10] VITALS: BP 172/81
--- NOTE | 2021-01-15 08:10 | NUR ---
PT SITTING UP ON SIDE OF BED UPON ENTERING ROOM. PT IS A/O X3. ASSESSMENT AND VITALS COMPLETED. BP 172/81, HR 99, O2 94% ON 4L NC. PT SAT 89-92% ON ROOM AIR, 3L NC DEPENDENT AT HOME. REPSIRATIONS ARE EVEN AND UNLABORED WITH NO DISTRESS NOTED. LUNG SOUNDS ARE CLEAR. HEART RHYTHM NORMAL WITH TELE IN PLACE. BOWEL SOUNDS ARE ACTIVE X4 QUADRANTS.PT STATES HE HAS NOT HAD BM SINCE ADMISSION,, LAST RECORDED BM 01/13/21. PT PREVIOUSLY MEDICATED WITH BOWEL MEDICATIONS YESTURDAY. PT DENIES OF ANY ABD PAIN. PULSES STRONG. SKIN INTACT. 1+ EDEMA NOTED TO BLE. COPELAND CATH IN PLACE, CLEAR YELLOW URINE NOTED. PT DENIES OF ANY PAINS OR DISCOMFORTS AT THIS TIME. ALL SAFETY PRECAUTIONS ARE IN PLACE WITH CALL LIGHT IN REACH. WILL CONTINUE TO MONITOR..
--- NOTE | 2021-01-15 09:53 | NUR ---
DR BOBO AT BEDSIDE
[2021-01-15 11:06] VITALS: BP 181/81
[2021-01-15] MEDS ORDERED: HYDRALAZINE HYD25 MG PO (11:54)
[2021-01-15] MEDS ORDERED: DOCUSATE CAL240 MG PO (11:55)
[2021-01-15] MEDS ORDERED: METOLAZONE5 MG PO (12:00)
--- NOTE | 2021-01-15 12:08 | NUR ---
FOLET CATH REMOVED PER ORDER. PT TOLERATED OK. SMALL AMOUNT OF BLEEDING NOTED AT HEAD OF PENIS. PT EDUCATED ON NEED TO VOID BEFORE DC. PT VERBLAIZED UNDERSTANDING. REPSIRTIONS REMAINS EVEN AND UNLABORED WITH NO DISTRESS ON 3L NC. #20G RAC REMAINS. ACCUCHECK REUSLTING IN 312, COVERAGE ADMINISTERED. PT DENIES OF ANY ADDTIONAL NEEDS. ALL SAFETY PRECAUTIONS ARE IN PLACE. WILL CONTINUE TO MONITOR
[2021-01-15 12:45] VITALS: BP 174/86
--- NOTE | 2021-01-15 12:46 | NUR ---
REPORTED BP IN 180'S. REASSESSMENT AT THIS TIME REUSLTING IN 174/86, HR 79. DR BOBO TO BE INFORMED.
--- NOTE | 2021-01-15 13:19 | NUR ---
DR BOBO INFORMED OF BP. ORDERS TO CONTINUE TO DC PT.
--- NOTE | 2021-01-15 13:24 | NUR ---
PT AND EDUCATED ON DC INSTRUCTIONS AND NEW MEDICATIONS. BOTH VERBALIZED UNDERSTANDING. 50 OF BLOODY TINGED URINE. IV REMOVED WITH CATH STILL INTACT. TELE MONITORING REMOVED, ER INFORMED. ASSISTING WITH GETING DRESSED. ALL SAFETY PRECAUTIONS ARE IN PLACE.
--- NOTE | 2021-01-15 13:45 | NUR ---
Discharge instructions given. Patient verbalizes understanding of same. Discharged in stable condition via Wheelchair to Home with staff. All belongings sent with pt. PT DC HOME IN STABLE CODITION VIA WHEELCHAIR ACCOMPAINED BY OUMOU QUINTERO WITH ALL DC INSTRUCTIONS AND PERSONAL BELONGINGS
== END 2021-01-15 13:41 | disposition home or self-care (01) ==
LOC: ED 08:43 → ED-I 12:48 → MS2 12:49 → ED 12:49 → MS2 12:49
PROVIDERS: Emergency Medicine; Internal Medicine Nephrology; Nurse Practitioner; ADMIT Hospitalist; ATTEND Hospitalist
PROC: 0T9B70Z Drainage of Bladder with Drainage Device, Via Natural or Artificial Opening (ICD-10-PCS; principal; 2021-01-12)
DX: I13.0 Hypertensive heart and chronic kidney disease with heart failure and stage 1 through stage 4 chronic kidney disease, or unspecified chronic kidney disease (principal); I50.9 Heart failure, unspecified; E11.22 Type 2 diabetes mellitus with diabetic chronic kidney disease; N18.4 Chronic kidney disease, stage 4 (severe); N17.0 Acute kidney failure with tubular necrosis; J96.11 Chronic respiratory failure with hypoxia; D63.1 Anemia in chronic kidney disease; K21.9 Gastro-esophageal reflux disease without esophagitis; I89.0 Lymphedema, not elsewhere classified; E03.9 Hypothyroidism, unspecified; F32.A Depression, unspecified; Z99.81 Dependence on supplemental oxygen; Z85.46 Personal history of malignant neoplasm of prostate; Z87.891 Personal history of nicotine dependence; Z79.4 Long term (current) use of insulin; Z20.822 Contact with and (suspected) exposure to COVID-19
CPT/HCPCS: Q5106 EC

== ENCOUNTER 2021-01-21 04:34 | Emergency (ER) | payer MEDICARE, BC ==
[~2021-01-21] VITALS: Ht 172.7 cm; Wt 100.0 kg
[~2021-01-21 04:34] MED LIST changes: +DOCUSATE CAL240 MG PO; +HYDRALAZINE HYD25 MG PO; +LASIX 40 MG TAB40 MG PO; +METOLAZONE5 MG PO; +NEURONTIN300 MG PO; +OMEPRAZOLE DR40 MG PO; +REPAGLINIDE2 MG PO
[2021-01-21 05:29] LABS: URINE BILIRUBIN - DIPSTICK NEGATIVE (NEGATIVE); URINE BLOOD DIPSTICK MODERATE (NEGATIVE); URINE COLOR YELLOW; URINE GLUCOSE - DIPSTICK NEGATIVE (NEGATIVE); URINE KETONE NEGATIVE (NEGATIVE); URINE PROTEIN - DIPSTICK 100 mg/dL (NEG-TRACE); URINE SPECIFIC GRAVITY 1.025; URINE UROBILINOGEN - DIPSTICK 0.2 E.U./dL (0.2)
[2021-01-21 05:30] LABS: URINE LEUK ESTERASE SMALL (NEGATIVE); URINE NITRITE - DIPSTICK NEGATIVE (Negative)
[2021-01-21 05:37] LABS: URINE BACTERIA MANY hpf; URINE SQUAMOUS EPITHELIAL CELL FEW EPI/hpf (0-FEW); URINE WBC 50-100 WBC/hpf (0-5)
[2021-01-21] MEDS ORDERED: BACTRIM1 TAB PO (06:10)
[2021-01-21 06:24] VITALS: BP 142/66
== END 2021-01-21 06:35 | disposition home or self-care (01) ==
LOC: ED 04:34
PROVIDERS: Family Medicine
PROC: 0T9B70Z Drainage of Bladder with Drainage Device, Via Natural or Artificial Opening (ICD-10-PCS; principal; 2021-01-21)
DX: R33.9 Retention of urine, unspecified (principal); I10 Essential (primary) hypertension; E11.9 Type 2 diabetes mellitus without complications; F17.200 Nicotine dependence, unspecified, uncomplicated; Z79.4 Long term (current) use of insulin; Z96.0 Presence of urogenital implants; Z85.46 Personal history of malignant neoplasm of prostate; R82.71 Bacteriuria

== ENCOUNTER 2021-01-28 08:20 | Emergency (ER) | payer MEDICARE, BC ==
[~2021-01-28] VITALS: Ht 172.7 cm; Wt 86.0 kg
[~2021-01-28 08:20] MED LIST changes: +BACTRIM1 TAB PO
[2021-01-28 09:43] LABS: IMMATURE GRANULOCYTES 1.8 % (0.0-5.0); MEAN CELL VOLUME 100.4 fL CALC (80.0-100.0); MEAN CORPUSCULAR HGB 31.8 pG CALC (26.0-32.0); MEAN CORPUSCULAR HGB CONC 31.6 g/dL CAL (32.0-36.0); NEUT# 8.57 thou/uL (1.82-7.42); RED BLOOD COUNT 2.55 mill/uL (4.70-6.10); RED CELL DISTRI WIDTH 17.1 % (11.5-15.5)
[2021-01-28 09:47] LABS: ALBUMIN 4.1 g/dL (3.2-5.0); BILIRUBIN, TOTAL 0.6 mg/dL (0.0-1.4); TOTAL PROTEIN 8.7 g/dL (6.3-8.2)
[2021-01-28 09:50] LABS: CREATININE 13.6 mg/dL (0.7-1.3); POTASSIUM 6.2 mmol/l (3.5-5.1)
[2021-01-28 10:09] LABS: URINE BILIRUBIN - DIPSTICK NEGATIVE (NEGATIVE); URINE BLOOD DIPSTICK MODERATE (NEGATIVE); URINE COLOR YELLOW; URINE GLUCOSE - DIPSTICK NEGATIVE (NEGATIVE); URINE KETONE NEGATIVE (NEGATIVE); URINE PROTEIN - DIPSTICK 100 mg/dL (NEG-TRACE); URINE SPECIFIC GRAVITY 1.025; URINE UROBILINOGEN - DIPSTICK 0.2 E.U./dL (0.2)
[2021-01-28 10:10] LABS: HEMATOCRIT 25.6 % (39.0-50.0); HEMOGLOBIN 8.1 g/dl (14.0-18.0)
[2021-01-28 10:13] LABS: URINE LEUK ESTERASE LARGE (NEGATIVE); URINE NITRITE - DIPSTICK NEGATIVE (Negative)
[2021-01-28 10:14] LABS: URINE BACTERIA MODERATE hpf; URINE EPITHELIAL CELLS MANY EPI/hpf (0-FEW); URINE WBC 20-50 WBC/hpf (0-5)
[2021-01-28] MEDS ORDERED: REPAGLINIDE2 MG PO (10:47)
[2021-01-28] MEDS ORDERED: TRESIBA FL200 UNIT/M SC (10:50)
[2021-01-28] MEDS ORDERED: ACCOLATE10 MG PO (10:50)
[2021-01-28] MEDS ORDERED: HYDRALAZINE10 MG PO (11:26)
[2021-01-28 11:50] LABS: POTASSIUM 6.1 mmol/l (3.5-5.1)
[2021-01-28 11:51] LABS: CREATININE 13.5 mg/dL (0.7-1.3)
[2021-01-28 12:11] VITALS: BP 191/71
== END 2021-01-28 12:11 | disposition short-term general hospital (02) ==
LOC: ED 08:20
PROVIDERS: Family Medicine
PROC: 0T9B70Z Drainage of Bladder with Drainage Device, Via Natural or Artificial Opening (ICD-10-PCS; principal; 2021-01-28)
DX: T83.111A Breakdown (mechanical) of implanted urinary sphincter, initial encounter (principal); N17.9 Acute kidney failure, unspecified; R33.9 Retention of urine, unspecified; I11.0 Hypertensive heart disease with heart failure; I50.9 Heart failure, unspecified; E87.5 Hyperkalemia; E11.9 Type 2 diabetes mellitus without complications; J44.9 Chronic obstructive pulmonary disease, unspecified; F17.200 Nicotine dependence, unspecified, uncomplicated; Y83.1 Surgical operation with implant of artificial internal device as the cause of abnormal reaction of the patient, or of later complication, without mention of misadventure at the time of the procedure; Z79.4 Long term (current) use of insulin; Z85.46 Personal history of malignant neoplasm of prostate

== ENCOUNTER 2021-06-28 16:35 | Emergency (ER) | payer MEDICARE, BC ==
[2021-06-28] VITALS (25 sets, daily range): BP systolic 129–186; BP diastolic 48–126
[~2021-06-28] VITALS: Ht 172.7 cm; Wt 75.0 kg
[~2021-06-28 16:35] MED LIST changes: +ACCOLATE10 MG PO; +HYDRALAZINE10 MG PO
[2021-06-28 17:05] LABS: HEMATOCRIT 35.4 % (39.0-50.0); HEMOGLOBIN 10.9 g/dl (14.0-18.0); IMMATURE GRANULOCYTES 0.4 % (0.0-5.0); MEAN CELL VOLUME 101.7 fL CALC (80.0-100.0); MEAN CORPUSCULAR HGB 31.3 pG CALC (26.0-32.0); MEAN CORPUSCULAR HGB CONC 30.8 g/dL CAL (32.0-36.0); NEUT# 6.69 thou/uL (1.82-7.42); RED BLOOD COUNT 3.48 mill/uL (4.70-6.10); RED CELL DISTRI WIDTH 19.3 % (11.5-15.5)
[2021-06-28 17:22] LABS: INTERNATIONAL NORMALIZED RATIO 0.9 RATIO (0.7-1.3); PROTHROMBIN TIME 9.9 SECONDS (9.0-12.5)
[2021-06-28 17:58] LABS: ALBUMIN 4.6 g/dL (3.2-5.0); ALKALINE PHOSPHATASE 93 u/l (38-126); ANION GAP 20 (6-22 (CALC)); BUN 47 mg/dL (8-23); CARBON DIOXIDE 25 mmol/l (22-30); CHLORIDE 95 mmol/l (95-108); POTASSIUM 4.4 mmol/l (3.5-5.1); SGOT/AST 36 u/l (19-48); SODIUM 136 mmol/l (137-146); TOTAL PROTEIN 9.2 g/dL (6.3-8.2)
[2021-06-28 18:08] LABS: BILIRUBIN, TOTAL 0.7 mg/dL (0.0-1.4); BUN/CREATININE RATIO 5 (12-20 (CALC)); CREATININE 9.8 mg/dL (0.7-1.3); GFR 5 ML/MIN (>=60 (CALC)); GFR FOR AFR.AMER. 6 ML/MIN (>=60 (CALC))
[2021-06-28 18:10] LABS: MYOGLOBIN 303 ng/mL (0 - 121)
== END 2021-06-28 23:03 | disposition short-term general hospital (02) ==
LOC: ED 16:35
PROVIDERS: Emergency Medicine
DX: K92.2 Gastrointestinal hemorrhage, unspecified (principal); I12.0 Hypertensive chronic kidney disease with stage 5 chronic kidney disease or end stage renal disease; E11.22 Type 2 diabetes mellitus with diabetic chronic kidney disease; N18.6 End stage renal disease; Z72.0 Tobacco use; Z79.4 Long term (current) use of insulin; R94.31 Abnormal electrocardiogram [ECG] [EKG]
CPT/HCPCS: S0164

== ENCOUNTER 2021-10-22 06:58 | Day surgery (SDC) | payer MEDICARE, BC ==
[~2021-10-22] VITALS: Ht 172.7 cm; Wt 89.0 kg
[~2021-10-22 06:58] MED LIST changes: +CYMBALTA60 MG PO; +DIALYVITE800 MG PO; +FA-80.8 M1 PO; +HUMALOG100 UNIT; +HYDRALAZINE50 MG PO; +NORVASC5 M1 PO; +PROTONIX40 M2 PO; +RENVELA0.8 GM PO; +RETACRIT4000 UNIT/
[2021-10-22 10:07] VITALS: BP 124/53
== END 2021-10-22 10:58 | disposition home or self-care (01) ==
LOC: ENDO 06:58 → ORM 08:00 → ENDO 08:00
PROVIDERS: ATTEND Surgery
PROC: 0DJD8ZZ Inspection of Lower Intestinal Tract, Via Natural or Artificial Opening Endoscopic (ICD-10-PCS; principal; 2021-10-22)
DX: K92.1 Melena (principal); I12.0 Hypertensive chronic kidney disease with stage 5 chronic kidney disease or end stage renal disease; E11.22 Type 2 diabetes mellitus with diabetic chronic kidney disease; N18.6 End stage renal disease; D63.1 Anemia in chronic kidney disease; K80.20 Calculus of gallbladder without cholecystitis without obstruction; Z99.2 Dependence on renal dialysis; Z79.4 Long term (current) use of insulin; Z86.010 Personal history of colon polyps; Z87.19 Personal history of other diseases of the digestive system

== ENCOUNTER 2021-12-16 12:46 | Observation (INO) | payer MEDICARE, BC ==
[~2021-12-16] VITALS: Ht 172.7 cm; Wt 90.0 kg
--- NOTE | 2021-12-16 12:53 | NUR ---
Patient alert and oriented states no pain or sob at this time
[2021-12-16 14:00] LABS: HEMATOCRIT 34.4 % (39.0-50.0); HEMOGLOBIN 11.5 g/dl (14.0-18.0); IMMATURE GRANULOCYTES 0.1 % (0.0-5.0); MEAN CORPUSCULAR HGB 34.4 pG CALC (26.0-32.0); MEAN CORPUSCULAR HGB CONC 33.4 g/dL CAL (32.0-36.0); NEUT# 4.2 thou/uL (1.82-7.42); RED BLOOD COUNT 3.34 mill/uL (4.70-6.10); RED CELL DISTRI WIDTH 15.2 % (11.5-15.5)
--- NOTE | 2021-12-16 14:00 | NUR ---
Reassessment of patient completed. No distress noted.
[2021-12-16 14:14] LABS: ALBUMIN 4.3 g/dL (3.2-5.0); TOTAL PROTEIN 8.2 g/dL (6.3-8.2)
[2021-12-16 14:24] LABS: BILIRUBIN, TOTAL 0.6 mg/dL (0.0-1.4); CREATININE 14.4 mg/dL (0.7-1.3); POTASSIUM 6.4 mmol/l (3.5-5.1)
--- NOTE | 2021-12-16 15:00 | NUR ---
Reassessment of patient completed. No distress noted.
--- NOTE | 2021-12-16 16:00 | NUR ---
Reassessment of patient completed. No distress noted.
--- NOTE | 2021-12-16 17:00 | NUR ---
Reassessment of patient completed. No distress noted.
[2021-12-16 18:00] VITALS: BP 135/60
--- NOTE | 2021-12-16 18:00 | NUR ---
PATIENT ADMITTED AT THIS TIME.
--- NOTE | 2021-12-16 18:00 | NUR ---
pt arrived ambulatory to ANR suite for dialysis; no distress noted; will continue to monitor
--- NOTE | 2021-12-16 18:30 | NUR ---
pt awake in recliner; offers no complaints; voices no complaints of pain; resp even and unlabored; lungs clear; skin color wnl; ra; no edema noted; abd soft with bs present; dialysis catheter noted to right chest pain; plan of care explained; consent obtained; will continue to monitor
--- NOTE | 2021-12-16 19:29 | NUR ---
GLUCOSE 168. PT DECLINED INSULIN
--- NOTE | 2021-12-16 19:30 | NUR ---
resting in recliner; offers no complaints; dialysis in progress; will continue to monitor
--- NOTE | 2021-12-16 20:50 | NUR ---
awake in recliner; tolerating dialysis; deny needs; will continue to monitor
--- NOTE | 2021-12-16 22:35 | NUR ---
dialysis completed per Griffin Evangelista RN; tolerated well; deaccessed;
--- NOTE | 2021-12-16 22:42 | NUR ---
Patient decides to leave AMA. Pt also encouraged to return to [facility] at any time, especially if symptoms continue or become worse. Pt verbalized understanding.
== END 2021-12-16 22:45 | disposition left against medical advice (07) ==
LOC: ED 12:46 → ED-I 13:38 → ED 13:50 → MS2 14:26
PROVIDERS: Family Medicine; ADMIT Internal Medicine; ATTEND Internal Medicine
PROC: 5A1D70Z Performance of Urinary Filtration, Intermittent, Less than 6 Hours Per Day (ICD-10-PCS; principal; 2021-12-16)
DX: I13.2 Hypertensive heart and chronic kidney disease with heart failure and with stage 5 chronic kidney disease, or end stage renal disease (principal); E11.22 Type 2 diabetes mellitus with diabetic chronic kidney disease; N18.6 End stage renal disease; I50.9 Heart failure, unspecified; E87.5 Hyperkalemia; D63.1 Anemia in chronic kidney disease; N25.81 Secondary hyperparathyroidism of renal origin; Z99.2 Dependence on renal dialysis; K21.9 Gastro-esophageal reflux disease without esophagitis; F32.A Depression, unspecified; E03.9 Hypothyroidism, unspecified; Z87.891 Personal history of nicotine dependence; Z79.4 Long term (current) use of insulin; Z85.46 Personal history of malignant neoplasm of prostate; Z20.822 Contact with and (suspected) exposure to COVID-19

== ENCOUNTER 2023-12-21 11:05 | Emergency (ER) | payer MEDICARE, BC ==
[~2023-12-21] VITALS: Ht 172.7 cm; Wt 83.0 kg
[~2023-12-21 11:05] MED LIST changes: +CITRATE OF MEGNESIA PO; +FLEET ENEMA RE; +MIRALAX17 GM/SCOO; -NIFEDIPINE ER60 M1 PO; +NIFEDIPINE ER60 MG PO; +ONDANSETRON4 MG PO; +REPAGLINIDE2 MG
[2023-12-21 11:16] VITALS: BP 112/64
[2023-12-21 11:41] VITALS: BP 111/62
[2023-12-21 12:00] VITALS: BP 126/68
[2023-12-21 12:15] LABS: BASO% 0.5 % (0-3); EOS% 4.8 % (0-8); HEMATOCRIT 36.6 % (39.0-50.0); HEMOGLOBIN 11.7 g/dl (14.0-18.0); IMMATURE GRANULOCYTES 0.7 % (0.0-5.0); LYMPH% 19.2 % (15-41); MEAN CELL VOLUME 108.3 fL CALC (80.0-100.0); MEAN CORPUSCULAR HGB 34.6 pG CALC (26.0-32.0); MONO% 8.1 % (2-13); NEUT# 3.64 thou/uL (1.82-7.42); NEUT% 66.7 % (42-76); RED BLOOD COUNT 3.38 mill/uL (4.70-6.10); RED CELL DISTRI WIDTH 15.7 % (11.5-15.5)
[2023-12-21 12:31] VITALS: BP 126/65
[2023-12-21 12:40] LABS: ALBUMIN 4.8 g/dL (3.2-5.0); BILIRUBIN, TOTAL 0.6 mg/dL (0.2-1.3); POTASSIUM 4.6 mmol/l (3.5-5.1); TOTAL PROTEIN 8.7 g/dL (6.3-8.2)
[2023-12-21 12:41] LABS: CREATININE 6.5 mg/dL (0.7-1.3)
[2023-12-21 13:00] VITALS: BP 133/74
[2023-12-21 13:12] VITALS: BP 133/74
== END 2023-12-21 13:45 | disposition home or self-care (01) ==
LOC: ED 11:05
PROVIDERS: Family Medicine
DX: R55 Syncope and collapse (principal); E11.22 Type 2 diabetes mellitus with diabetic chronic kidney disease; I12.0 Hypertensive chronic kidney disease with stage 5 chronic kidney disease or end stage renal disease; N18.6 End stage renal disease; Z99.2 Dependence on renal dialysis; Z79.4 Long term (current) use of insulin